=== PATIENT | female | born 1950 | race African-American/Black ===

== ENCOUNTER 2017-01-28 16:06 | Emergency (ER) | payer MEDICARE, OTHER ==
[~2017-01-28] VITALS: Ht 172.7 cm; Wt 115.0 kg
[2017-01-28 16:17] VITALS: BP 170/95
== END 2017-01-28 18:05 | disposition left against medical advice (07) ==
LOC: ER 17:56
DX: M54.40 Lumbago with sciatica, unspecified side (principal); M19.90 Unspecified osteoarthritis, unspecified site; Z88.2 Allergy status to sulfonamides
CPT/HCPCS: 99281